=== PATIENT | female | born 1995 | race Caucasian/White ===

== ENCOUNTER 2020-05-29 22:58 | Emergency (ER) | payer SELFPAY ==
[~2020-05-29] VITALS: Ht 160 cm; Wt 58.1 kg
[2020-05-29 23:03] VITALS: BP 98/74
--- NOTE | 2020-05-29 23:10 | NUR ---
PT AMBULATED TO BED #10
--- NOTE | 2020-05-29 23:31 | NUR ---
XRAY AT BEDSIDE
--- NOTE | 2020-05-29 23:54 | NUR ---
24 Y/O FEMALE C/O SOB, CHEST TIGHTNESS, BODY ACHES X1.5 WEEK. PT WAS COVID TESTED X3 DAYS AGO, NOT RESULTED YET. DENIES N/V/D; SKIN IS PINK/WARM/DRY; AAOX4 WITH EVEN AND STEADY GAIT; HR EVEN AND REGULAR; PT DENIES ANY FEVER, CP, OR COUGH AT THIS TIME; PATIENT STATES PAIN OF 4/10 AT THIS TIME; VSS; PATIENT POSITIONED FOR COMFORT; HOB ELEVATED; BEDRAILS UP X2; BED DOWN AND LOCKED. ER MD MADE AWARE OF PT STATUS. MEDHX- ASHTMA, HEART MURMUR NKA
--- NOTE | 2020-05-29 23:57 | NUR ---
PT RESTING IN BED IN POSITION OF COMFORT, BED LOW AND LOCKED, 1 SIDERAIL UP, VSS, WILL CONTINUE TO MONITOR.
[2020-05-30] MEDS ORDERED: KETOROLAC 60 MG/2 ML VIAL IM ONE (00:40)
--- NOTE | 2020-05-30 00:58 | NUR ---
PT RESTING IN BED IN POSITION OF COMFORT, BED LOW AND LOCKED, 1 SIDERAIL UP, VSS, WILL CONTINUE TO MONITOR.
[2020-05-30 01:42] VITALS: BP 98/74
--- NOTE | 2020-05-30 01:42 | NUR ---
Patient discharged with v/s stable. Written and verbal after care instructions given and explained. Patient alert, oriented and verbalized understanding of instructions. Ambulatory with steady gait. All questions addressed prior to discharge. ID band removed. Patient advised to follow up with PMD. Rx of MOTRIN/NORCO given. Patient educated on indication of medication including possible reaction and side effects. Opportunity to ask questions provided and answered.
== END 2020-05-30 01:42 | disposition home or self-care (01) ==
LOC: MED 22:58
DX: R07.9 Chest pain, unspecified (principal); R06.02 Shortness of breath; J45.909 Unspecified asthma, uncomplicated
CPT/HCPCS: 71045; 96372; 99283; J1885; Q0092

== ENCOUNTER 2020-08-18 15:51 | Emergency (ER) | payer SELFPAY ==
[~2020-08-18] VITALS: Ht 168.9 cm; Wt 58.6 kg
[2020-08-18 15:53] VITALS: BP 110/67
--- NOTE | 2020-08-18 15:57 | NUR ---
24/F BIB SELF C/O NAUSEA, DIARRHEA, RIGHT FLANK PAIN, URINARY BURNING X 1 WEEK. SMALL AMOUNT OF BLOOD IN URINE THIS MORNING. MED HX: ASTHMA
[2020-08-18 16:33] LABS: APPEARANCE,URINE CLEAR (CLEAR); BILIRUBIN,URINE NEGATIVE (NEGATIVE); BLOOD, URINE NEGATIVE (NEGATIVE); COLOR,URINE YELLOW (YELLOW); LEUKOCYTE ESTERASE ,URINE NEGATIVE (NEGATIVE); NITRITE, URINE NEGATIVE (NEGATIVE); UGLUCOSE NEGATIVE (NEGATIVE)
[2020-08-18] MEDS: ONDANSETRON 4 MG ODT PO ONE (16:33)
[2020-08-18 16:40] VITALS: BP 117/65
--- NOTE | 2020-08-18 16:40 | NUR ---
Patient discharged with v/s stable. Written and verbal after care instructions given and explained BY ELIOT SALDIVAR. Patient Ambulatory with steady gait. ID band removed. Rx of ZOFRAN, NAPROSYN, CEPHALEXIN given.
== END 2020-08-18 16:40 | disposition home or self-care (01) ==
LOC: MED 15:51
DX: N10 Acute pyelonephritis (principal); J45.909 Unspecified asthma, uncomplicated
CPT/HCPCS: 81003; 81025; 87086; 99283; Q0162

== ENCOUNTER 2022-05-01 10:59 | Emergency (ER) | payer OTHER ==
[~2022-05-01] VITALS: Ht 167.6 cm; Wt 58.5 kg
[2022-05-01 11:06] VITALS: BP 116/79
--- NOTE | 2022-05-01 11:12 | NUR ---
PT AMB TO BED 4.
--- NOTE | 2022-05-01 11:15 | NUR ---
26 Y/O FEMALE BIB SELF C/O NON-RADIATING PAIN 10 TAILBONE S/P FALL X LAST NIGHT. PT DENIES HITTING HER HEAD. PT DENIES FEVER OR CHILLS. BED LOCKED IN LOWEST POSITION. BED RAIL X1. PMH: DENIES MEDS:DENIES NKA
[2022-05-01] MEDS ORDERED: TRAM50TA1 PO (11:54)
== END 2022-05-01 12:00 | disposition home or self-care (01) ==
LOC: MED 10:59
DX: S30.0XXA Contusion of lower back and pelvis, initial encounter (principal); F17.290 Nicotine dependence, other tobacco product, uncomplicated; Z79.899 Other long term (current) drug therapy; W10.9XXA Fall (on) (from) unspecified stairs and steps, initial encounter; Y93.89 Activity, other specified; Y92.098 Other place in other non-institutional residence as the place of occurrence of the external cause; Y99.8 Other external cause status
CPT/HCPCS: 81025; 99283